=== PATIENT | female | born 1945 | race Caucasian/White ===

== ENCOUNTER → 2017-09-16 | Outpatient (CLI) | payer MEDICARE, OTHER | END | disposition home or self-care (01) | LOC: GMAH 11:33 | PROVIDERS: ATTEND Family Medicine | DX: E03.9 Hypothyroidism, unspecified (principal) ==

== ENCOUNTER → 2018-03-05 | Outpatient (CLI) | payer MEDICARE, OTHER | LOC: GMAH 14:38 | PROVIDERS: ATTEND Family Medicine | DX: R35.0 Frequency of micturition (principal) ==

== ENCOUNTER → 2018-07-01 | Outpatient (CLI) | payer MEDICARE, OTHER | LOC: GMAH 11:07 | PROVIDERS: ATTEND Family Medicine | DX: E03.9 Hypothyroidism, unspecified (principal); I10 Essential (primary) hypertension ==

== ENCOUNTER → 2018-08-12 | Outpatient (CLI) | payer MEDICARE, OTHER | LOC: LAB.O 11:32 | PROVIDERS: ATTEND Surgery | DX: L02.01 Cutaneous abscess of face (principal) ==

== ENCOUNTER → 2018-12-24 | Outpatient (CLI) | payer MEDICARE, OTHER | LOC: LAB.O 09:06 | PROVIDERS: ATTEND Psychiatry & Neurology Psychiatry | DX: F31.76 Bipolar disorder, in full remission, most recent episode depressed (principal) ==

== ENCOUNTER → 2019-03-16 | Outpatient (CLI) | payer MEDICARE, OTHER | LOC: US 14:51 | PROVIDERS: ATTEND Family Medicine | DX: R06.02 Shortness of breath (principal); R60.0 Localized edema ==

== ENCOUNTER → 2019-05-26 | Outpatient (CLI) | payer MEDICARE, OTHER | LOC: GMA MATASK 16:44 | PROVIDERS: ATTEND Family Medicine | DX: I10 Essential (primary) hypertension (principal) ==

== ENCOUNTER 2019-09-22 18:12 | Emergency (ER) | payer MEDICARE, OTHER ==
--- NOTE | 2019-09-22 18:29 | ED.PDOC ---
History of Present Illness - General Time Seen by Provider: 09/22/19 18:27 Source: patient, RN notes reviewed, Vital Signs reviewed, family Exam Limitations: other - having some confusion since head injury 2 months ago - History of Present Illness Timing/Duration: other - pt fell and hit her head 2 months ago and has had confusion and dizziness since Severity: moderate Improving Factors: nothing, other - using a walker now Worsening Factors: nothing Associated Symptoms: confusion, trouble walking Allergies/Adverse Reactions: Allergies NO KNOWN ALLERGY Allergy (Verified 09/22/19 18:36) Home Medications: Ambulatory Orders Brexpiprazole [Rexulti] 1 mg PO DAILY 09/17/19 Eszopiclone [Lunesta] 2 mg PO DAILY 09/17/19 Furosemide PO DAILY 09/17/19 Ketorolac Tromethamine 10 mg PO Q6HR 09/17/19 Lamotrigine [Lamictal] 200 mg PO DAILY 09/17/19 Levetiracetam [Keppra] 500 mg PO BID 09/17/19 Levothyroxine Sodium PO DAILY 09/17/19 Losartan Potassium PO DAILY 09/17/19 Meloxicam 7.5 mg PO DAILY 09/17/19 Ondansetron HCl [Zofran] 8 mg PO Q8HR 09/17/19 Potassium Chloride [Potassium Chloride ER] 20 meq PO DAILY #14 tab 09/17/19 SUMAtriptan SUCCINATE [Imitrex] 50 mg PO 09/17/19 Simvastatin [Zocor] 20 mg PO DAILY 09/17/19 Tramadol HCl 50 mg PO Q6HR 09/17/19 amLODIPine BESYLATE 10 mg PO DAILY 09/17/19 busPIRone HCL [Buspar] 10 mg PO BID 09/17/19 cloNIDine HCL [Catapres] 0.1 mg PO PRN 09/17/19 Review of Systems - Review of Systems Constitutional: Denies: chills, fever, weakness EENTM: States: see HPI. Denies: eye pain, nose congestion, throat pain Respiratory: Denies: cough, short of breath Cardiology: Denies: chest pain, palpitations, syncope Gastrointestinal/Abdominal: Denies: abdominal pain, diarrhea, nausea, vomiting Genitourinary: States: frequency, other - no incontinence. Denies: dysuria, hematuria, pain Musculoskeletal: Denies: back pain, joint pain, muscle pain, neck pain Neurological: States: anxiety, headache - headaches occurred a month ago but subsided, weakness. Denies: numbness, pre-existing deficit, seizure Past Medical History (General) - Patient Medical History Hx Seizures: No Hx Stroke: No Hx Dementia: No Hx Asthma: No Hx of COPD: No Hx Pacemaker: No Hx Hypertension: Yes Hx Diabetes: No Hx Gastroesophageal Reflux: No Hx Renal Disease: No - Vaccination History Hx Tetanus, Diphtheria Vaccination: No Hx Influenza Vaccination: Yes Hx Pneumococcal Vaccination: No - Social History Hx Tobacco Use: No Hx Alcohol Use: No Family Medical History - Family History Mother Family History: Unknown Living Status: Unknown Physical Exam - Physical Exam General Appearance: Alert, Anxious, No apparent distress, Well Developed, Well Nourished Eye Exam: bilateral normal - no nystagmus, PERRL ENT Exam: normal ENT inspection, TMs normal, pharynx normal Neck: non-tender, full range of motion, supple, normal inspection Respiratory: chest non-tender, lungs clear, normal breath sounds, no respiratory distress Cardiovascular/Chest: regular rate, rhythm, no edema, no JVD, no murmur Gastrointestinal/Abdominal: non tender, soft, no organomegaly Back Exam: normal inspection, no CVA tenderness, no vertebral tenderness Extremities Exam: non-tender, normal range of motion, no edema Mental Status: alert, oriented x 3 clinical specialty rep Exam: normal speech, PERRL Coordination/Gait: normal finger to nose, abnormal gait Motor/Sensory: no motor deficit, no sensory deficit, no pronator drift Skin Exam: normal color, warm/dry Progress - Progress Progress: 09/22/19 19:43 discussed conditions at length with patient and friend. She has continued to get worse after original injury and has fallen 4-5 times at home. This is so prominent that this usually vigorous patient is having to use a walker. They have tried to get back in to a neurosurgeon in [place], but they were told that he is on vacation. Requesting to be transferred to [facility] - Results/Orders Results/Orders: Laboratory Results - last 24 hr 09/22/19 09/22/19 09/22/19 18:45 18:45 19:10 WBC 9.6 RBC 4.98 Hgb 14.4 Hct 42.7 MCV 85.8 MCH 29.0 MCHC 33.8 RDW 13.6 Plt Count 322 MPV 8.4 Absolute Neuts (auto) 6.70 Absolute Lymphs (auto) 1.90 Absolute Monos (auto) 0.70 Absolute Eos (auto) 0.30 Absolute Basos (auto) 0.10 Neutrophils % 70.0 Lymphocytes % 19.3 L Monocytes % 7.0 Eosinophils % 3.2 Basophils % 0.5 Sodium 136 Potassium 3.0 L Chloride 98 L Carbon Dioxide 29 Anion Gap 12.0 BUN 17 Creatinine 0.93 BUN/Creatinine Ratio 18.3 Random Glucose 129 H Serum Osmolality 275.2 Calcium 9.2 Urine Color Yellow Urine Appearance Clear Urine pH 7.5 Ur Specific [place] 1.020 Urine Protein Negative Urine Glucose (UA) Negative Urine Ketones Negative Urine Blood Negative Urine Nitrite Negative Urine Bilirubin Negative Urine Urobilinogen 0.2 Ur Leukocyte Esterase Trace H Urine RBC 0-1 Urine WBC 1-3 Ur Epithelial Cells 0-1 Urine Bacteria Rare Hyaline Casts 0-1 - EKG/XRAY/CT CT Ordered: Yes - Intraparenchymal hemorrhage with edema, subacute Departure - Departure Clinical Impression: Traumatic intraparenchymal hemorrhage, Fall at home, Gait instability Disposition: Transfer to Hospital Condition: Fair Referrals: Shashi Dunaway MD [Primary Care Provider] - 1-2 Weeks Home Medications: Ambulatory Orders Brexpiprazole [Rexulti] 1 mg PO DAILY 09/17/19 Eszopiclone [Lunesta] 2 mg PO DAILY 09/17/19 Furosemide PO DAILY 09/17/19 Ketorolac Tromethamine 10 mg PO Q6HR 09/17/19 Lamotrigine [Lamictal] 200 mg PO DAILY 09/17/19 Levetiracetam [Keppra] 500 mg PO BID 09/17/19 Levothyroxine Sodium PO DAILY 09/17/19 Losartan Potassium PO DAILY 09/17/19 Meloxicam 7.5 mg PO DAILY 09/17/19 Ondansetron HCl [Zofran] 8 mg PO Q8HR 09/17/19 Potassium Chloride [Potassium Chloride ER] 20 meq PO DAILY #14 tab 09/17/19 SUMAtriptan SUCCINATE [Imitrex] 50 mg PO 09/17/19 Simvastatin [Zocor] 20 mg PO DAILY 09/17/19 Tramadol HCl 50 mg PO Q6HR 09/17/19 amLODIPine BESYLATE 10 mg PO DAILY 09/17/19 busPIRone HCL [Buspar] 10 mg PO BID 09/17/19 cloNIDine HCL [Catapres] 0.1 mg PO PRN 09/17/19
--- NOTE | 2019-09-22 19:22 | CT ---
EXAM DESCRIPTION: Head CLINICAL HISTORY: 74 years Female intraparenchymal hemorrhage interval change COMPARISON: September 17, 2019. TECHNIQUE: Images were obtained in axial, sagittal, and coronal planes. This exam was performed according to our departmental dose-optimization program which includes use of Automated Exposure Control, adjustment of the mA and/or kV according to patient size and/or use of iterative reconstruction technique. FINDINGS: 4 cm focal region of abnormal attenuation posterior right parietal lobe again noted. There is again effacement of the posterior horn of the right lateral ventricle. The finding displays central and peripheral irregular increased attenuation with peripheral decreased attenuation consistent with edema and is overall unchanged when correlated with the prior study. No midline shift. No new abnormal areas of increased attenuation seen. No extra-axial fluid collections noted. No evidence for skull fracture. Symmetric aeration mastoid air cells bilaterally. Unremarkable paranasal sinuses. IMPRESSION: Involuting intracerebral hemorrhage versus brain parenchymal lesion and edema posterior right parietal lobe. Appearance unchanged when correlated with the prior study. Correlation with magnetic resonance study utilizing intravenous contrast would be needed to further exclude underlying neoplasm. Electronically signed by: Aby Barker MD 09/22/2019 7:20 PM CDT
[2019-09-22] MEDS ORDERED: DEXAMETHASONE INJ 4 MG/ML VIAL IV ONE (19:52)
[2019-09-22] MEDS ORDERED: SODIUM CHLORIDE 0.9% (FLUSH) 10 ML SYG IV ONE (19:53)
[2019-09-22 20:52] VITALS: BP 124/77; TEMP 99.2; O2SAT 96
== END 2019-09-22 20:45 | disposition short-term general hospital (02) ==
LOC: ER 18:12
DX: S06.360A Traumatic hemorrhage of cerebrum, unspecified, without loss of consciousness, initial encounter (principal); I10 Essential (primary) hypertension; R26.9 Unspecified abnormalities of gait and mobility; W18.30XA Fall on same level, unspecified, initial encounter; Y92.009 Unspecified place in unspecified non-institutional (private) residence as the place of occurrence of the external cause
CPT/HCPCS: 70450; 80048; 81001; 85025; J1100